=== PATIENT | female | born 1980 | race Caucasian/White ===

== ENCOUNTER 2020-03-20 08:13 | Emergency (ER) | payer BC ==
[~2020-03-20] VITALS: Ht 162.6 cm; Wt 61.2 kg
[2020-03-20 09:27] VITALS: BP 122/71
== END 2020-03-20 09:25 | disposition left against medical advice (07) ==
LOC: M.ERS 08:13
DX: S06.0X0A Concussion without loss of consciousness, initial encounter (principal); S01.01XA Laceration without foreign body of scalp, initial encounter; S40.211A Abrasion of right shoulder, initial encounter; M54.2 Cervicalgia; M79.662 Pain in left lower leg; M79.661 Pain in right lower leg; Y04.0XXA Assault by unarmed brawl or fight, initial encounter; Y93.89 Activity, other specified; Y92.89 Other specified places as the place of occurrence of the external cause; Y99.8 Other external cause status